=== PATIENT | male | born 1975 | race Two or more races ===

== ENCOUNTER 2021-01-21 11:47 | Outpatient (CLI) | payer OTHER | END 2021-01-21 14:49 | disposition home or self-care (01) | LOC: RAD 11:47 | PROVIDERS: ATTEND Orthopaedic Surgery | DX: M25.511 Pain in right shoulder (principal); M25.572 Pain in left ankle and joints of left foot ==

== ENCOUNTER 2021-09-15 11:05 | Emergency (ER) | payer OTHER ==
[~2021-09-15] VITALS: Ht 172.7 cm; Wt 79.4 kg
== END 2021-09-15 14:05 | disposition home or self-care (01) ==
LOC: ER 11:05
DX: S69.92XA Unspecified injury of left wrist, hand and finger(s), initial encounter (principal); X58.XXXA Exposure to other specified factors, initial encounter; Y93.9 Activity, unspecified; Y92.9 Unspecified place or not applicable; Y99.9 Unspecified external cause status